=== PATIENT | male | born 1965 | race African-American/Black ===

== ENCOUNTER 2019-05-14 22:00 | Inpatient (IN) ==
--- NOTE | 2019-05-14 22:26 | EKG Report ---
Test Performed on : 05/14/2019 10:19:57 PM Test Reason : sob Blood Pressure : / mmHG Vent. Rate : 081 BPM Atrial Rate : 081 BPM P-R Int : 168 ms QRS Dur : 086 ms QT Int : 424 ms P-R-T Axes : 070 006 080 degrees QTc Int : 492 ms Normal sinus rhythm. Septal infarct , age undetermined Inferior injury pattern ACUTE [place] / STEMI Abnormal ECG No previous ECGs available Unconfirmed Result
--- NOTE | 2019-05-14 22:26 | EKG Report ---
Test Performed on : 05/14/2019 10:21:14 PM Test Reason : sob Blood Pressure : / mmHG Vent. Rate : 083 BPM Atrial Rate : 086 BPM P-R Int : 000 ms QRS Dur : 092 ms QT Int : 368 ms P-R-T Axes : 000 -09 060 degrees QTc Int : 432 ms Accelerated Junctional rhythm. Possible Inferior infarct , age undetermined Abnormal ECG When compared with ECG of 14-MAY-2019 22:19, (Unconfirmed) Junctional rhythm. has replaced Sinus rhythm. QT has shortened Unconfirmed Result
[2019-05-14 22:42] LABS: ALLEN TEST YES; BE -8.6 mmoll (-3.0-3.0); BLOOD TYPE ARTERIAL; HCO3-(ACT) 18.1 mmoll (20.0-26.0); O2(CT) 12.1 mL/dL (15.0-23.0); O2HB 90.3 % (95.0-99.0); PCO2(98.6) 30 mmHg (35-45); PO2(98.6) 61 mmHg (60-100); SAMPLE BLOOD; SAO2 93.5 % (95.0-100.0); THB 9.5 g/dL (11.5-17.4); pH(98.6) 7.34 (7.35-7.45)
[2019-05-14 22:43] LABS: MODALITY NRB
[2019-05-14 22:56] LABS: BASO# 0.01 X1000 (0.0-0.2); BASO% 0.1 % (0.0-0.8); EOS# 0.01 X1000 (0.0-0.7); EOS% 0.1 % (0.0-10.0); HEMATOCRIT 28.1 % (42.0-52.0); HEMOGLOBIN 8.8 g/dL (14.0-18.0); IMM GRAN# 0.03 X1000 (0.0-0.04); IMM GRAN% 0.4 % (0.0-0.5); LYMPH# 0.62 X1000 (1.2-3.4); LYMPH% 7.9 % (20.5-51.1); MCH 26.7 PG (27-31); MCHC 31.3 g/dL (33-37); MCV 85.2 FL (81-99); MONO# 0.28 X1000 (0.11-0.59); MONO% 3.6 % (1.7-9.3); MPV 11.1 FL (7.4-10.4); NEUT# 6.88 X1000 (1.4-6.5); NEUT% 87.9 % (42.2-75.2); PLT 307 X1000 (130-400); RDW 15.6 % (11.5-14.5); WBC 7.83 X1000 (4.8-10.8)
[2019-05-14 23:02] LABS: INR 1.31; PROTIME 16.5 Seconds (11.0-16.0)
[2019-05-14 23:04] LABS: PTT 57.1 Seconds (22.3-41.8)
[2019-05-14 23:48] LABS: ESTIMATED GFR 14
[2019-05-14 23:53] LABS: AGAP 14; ALB/GLOB RATIO 0.4; ALBUMIN 1.6 g/dL (3.5-5.0); ALKALINE PHOSPHATASE 229 U/L (32-122); BUN 51 mg/dL (8-22); CALCIUM 8.3 mg/dL (8.8-10.2); CHLORIDE 110 mmol/L (98-107); COSMO 290; CREATININE 5.2 mg/dL (0.7-1.2); GLUCOSE 116 mg/dL (70-104); GOT 13 U/L (10-34); GPT < 5 U/L (10-44); POTASSIUM 4.5 mmol/L (3.5-5.1); SODIUM 138 mmol/L (136-145); TCO2 14 mmol/L (25-35); TOTAL BILIRUBIN 0.17 mg/dL (0.20-1.00); TOTAL PROTEIN 5.5 g/dL (6.3-8.3)
[2019-05-15] MEDS ORDERED: LEVOPHED 8 MG in D5 1/2 NS 250 ML IV SCH (01:30)
--- NOTE | 2019-05-15 01:41 | PROVIDER DOCUMENTATION ---
This chart was entered by Nanci Mason Scribe, acting as scribe for Joni Brower MD. HPI-General Adult - General Stated Complaint: sob Time Seen by Provider: 05/14/19 22:11 Source: patient Unable to obtain history due to:: altered Allergies/Adverse Reactions: Patient Allergies Allergy/AdvReac Type Severity Reaction Status Date / Time No Known Allergies Allergy Verified 05/15/19 01:30 - History of Present Illness -Gen Adult Nature of Presenting Problems: pt is a 53 yr old male presenting via EMS from [facility], pt o2 sats in the 60's upon EMS arrival, EMS noted pt was wearing nasal canula but it was not hooked up to oxygen. pt hx of back cancer with mets, pt is responsive to painful stimuli at baseline, family reports he is acting no different than normal. pt recent hx of pneumonia Review of Systems - Adult - REVIEW OF SYSTEMS - ADULT ROS:: unobtainable per condition Constitutional: reports: no symptoms reported Eyes: reports: no symptoms reported Ears, Nose, Mouth & Throat: reports: no symptoms reported Cardiovascular: reports: no symptoms reported Respiratory: reports: other (low oxygen levels) Gastrointestinal: reports: no symptoms reported Genitourinary: reports: no symptoms reported Musculoskeletal: reports: no symptoms reported Integumentary: reports: no symptoms reported Neurological: reports: no symptoms reported Psychiatric: reports: no symptoms reported Endocrine: reports: no symptoms reported Hematologic/Lymphatic: reports: no symptoms reported Allergic/Immunologic: reports: no symptoms reported All Other Systems: Reviewed and Negative Past History - Adult - PAST MEDICAL HISTORY-ADULT Review of Records: reports: Nursing Assessment Review, Medications Reviewed, Social history reviewed & non-contributory. Major Childhood Illnesses: reports: denies history Cardiovascular: reports: denies history Respiratory: reports: denies history Gastrointestinal: reports: denies history Obstetrical/Gynecological: reports: denies history Genitourinary: reports: denies history Musculoskeletal: reports: denies history Neurological: reports: denies history Endocrine/Immune: reports: denies history Other Conditions: reports: denies history - IMMUNIZATION STATUS Childhood Immunizations: See Nurse Assessment Flu Vaccine: See Nurse Assessment - FAMILY HISTORY Family History: reviewed, not pertinent - SOCIAL HISTORY Living Situation: care facility Physical Exam-General - PHYSICAL EXAM-ADULT Initial Vital Signs Reviewed: Yes - CONSTITUTIONAL General Appearance: mild distress, obtunded (responsive to painful stimuli only) - EYES Eyes: PERRL/EOMI - HEAD, EARS, NOSE, MOUTH & THROAT HENMT: normocephalic/atraumatic, moist mucous membranes, normal ENT inspection - NECK Neck: supple - RESPIRATORY Respiratory: respiratory distress, rhonchi (coarse rhonchi left lung) - CARDIOVASCULAR Cardiovascular: normal peripheral pulses, regular rate, rhythm - GASTROINTESTINAL (ABDOMEN) Abdominal Exam: normal bowel sounds, soft - LYMPHATIC Lymphatic: no adenopathy - SKIN Integumentary: normal color, normal turgor, warm/dry Progress - PLAN OF CARE/RESULTS Progress/Plan/Lab Results: Laboratory Results - last 24 hr 05/14/19 22:11 Specimen Type ARTERIAL Sample Site R RADIAL pH 7.34 L pCO2 30 L pO2 61 HCO3 18.1 L Base Excess -8.6 L Oxyhemoglobin 90.3 L ABG O2 Sat (Calculated) 12.1 L ABG O2 Saturation 93.5 L ABG Carboxyhemoglobin 2.40 ABG Methemoglobin 1.0 Dale Test YES A-a O2 Difference 615.0 Total Hemoglobin 9.5 L Lactate 1.60 Liter Flow 15.0 Blood Gas Modality NRB FiO2 % 100.0 Orders Category Date Time Status CHEST-1 VIEW [RAD] Stat Exams 05/14/19 22:11 Taken ABG [RESP] Routine Lab 05/14/19 22:11 Completed BLOOD CULTURE [BLDCUL] Stat Lab 05/14/19 22:34 Ordered CBC WITH ELECTRONIC DIFF [HEME] Stat Lab 05/14/19 22:34 Ordered COMPREHENSIVE METABOLIC PANEL [CHEM] Stat Lab 05/14/19 22:34 Ordered LACTATE, PLASMA [CHEM] Stat Lab 05/14/19 22:34 Ordered PRO B-NATRIURETIC PEPTIDE Stat Lab 05/14/19 22:34 Ordered PROTIME WITH INR [COAG] Stat Lab 05/14/19 22:34 Ordered PTT [COAG] Stat Lab 05/14/19 22:34 Ordered TROPONIN T HIGH SENSITIVITY Stat Lab 05/14/19 22:34 Ordered EKG [EKG] Stat Ther 05/14/19 22:22 Draft EKG [EKG] Stat Ther 05/14/19 22:24 Draft Result Diagrams: 05/14/19 22:40 05/14/19 22:40 - CONSULTS/PCP/HOSPITALIST Notification #1 *Consult/PCP/Hospitalist*: Dr Pittman Time Discussed: 01:30 Consult Disposition: Will see in ED, Admit Departure - Departure Date of Disposition Decision: 05/15/19 Time of Disposition Decision: 01:33 DIAGNOSIS: Acute renal failure (ARF), Pneumonia, Hypotension, Elevated troponin, CHF (congestive heart failure), Anemia Disposition: ADMITTED INPATIENT 09 Certified Medical Emergency: Emergent Condition: Serious - Critical Care Note This patient required my direct & personal management of CC.: No Attestation - Physician/ ELOY Attestation Patient care was provided by Advanced Practice Provider:: No The physician spent face to face time with patient:: Yes Advanced Practice Provider documentation review:: Supervising physician onsite and consulted in the evaluation and care of this patient. The physician did have a face to face encounter with the patient. This chart was documented by the indicated scribe, (Nanci Mason, Giovanni) and accurately reflects the services I performed and decisions made by me, Joni Brower MD, as attested by the provider's signature.
[2019-05-15] MEDS ORDERED: DUONEB (A & A) INH PRN (01:42)
[2019-05-15] MEDS ORDERED: NS 1,000 ML IV SCH (01:45)
[2019-05-15] MEDS: NS 1,000 ML IV SCH ×2 (01:48→02:00)
[2019-05-15] MEDS ORDERED: LEVAQUIN 250 MG/D5W 250 MG/50 ML IVPB IV SCH (02:00)
[2019-05-15] MEDS: DUONEB (A & A) INH SCH ×6 (03:12→22:20)
--- NOTE | 2019-05-15 06:25 | Diag Imaging Result Doc PS360 ---
CHEST-1 VIEW - 05/14/2019 INDICATION: sob, hypoxia COMPARISON: None FINDINGS: There is a right PICC line in good position with the catheter tip at the lower SVC. There are heterogeneous bilateral alveolar infiltrates. These are worst in the left upper lobe. There are trace bilateral pleural effusions. Heart size is normal. IMPRESSION: Extensive bilateral infiltrates consistent with pneumonia and/or pulmonary edema. Trace pleural effusions. Electronically signed by Benny Hutchinson 05/15/2019 6:23 AM
[2019-05-15] MEDS: ZOSYN 2.25 GM in NS 50 ML IV SCH ×2 (06:56→18:50)
--- NOTE | 2019-05-15 07:00 | EKG Report ---
Test Performed on : 05/15/2019 01:46:59 AM Test Reason : PNA Blood Pressure : / mmHG Vent. Rate : 082 BPM Atrial Rate : 082 BPM P-R Int : 120 ms QRS Dur : 084 ms QT Int : 412 ms P-R-T Axes : 029 000 066 degrees QTc Int : 481 ms Normal sinus rhythm. Low voltage QRS Prolonged QT Abnormal ECG When compared with ECG of 14-MAY-2019 22:21, (Unconfirmed) Sinus rhythm. has replaced Junctional rhythm. QT has lengthened Unconfirmed Result
--- NOTE | 2019-05-15 07:39 | HISTORY AND PHYSICAL ---
HISTORY OF PRESENT ILLNESS: Mr. Jesus Denton is a 53-year-old male who is from a nursing facility. The patient is nonverbal, and no history could be obtained from the patient. No family present at the bedside. The patient was noted to be hypoxic at the time of presentation to the emergency department. X-ray of the chest done at the time of presentation showed evidence of extensive bilateral infiltrates, consistent with pneumonia and/or pulmonary edema, with evidence of trace pleural effusion. The patient does have a history of metastatic disease, of which the details are not exactly known at this time. PAST MEDICAL HISTORY: The patient has: 1. Metastatic disease. 2. History of cerebrovascular accident with right hemiparesis/plegia. FAMILY HISTORY: No information available. SOCIAL HISTORY: The patient resides in a nursing facility. ALLERGIES: No known drug allergies. PAST SURGICAL HISTORY: No information available. REVIEW OF SYSTEMS: Could not be obtained from the patient. PHYSICAL EXAMINATION: VITAL SIGNS: Temperature 99.1 degrees, pulse 92, respiratory rate 26, blood pressure is 90/61, oxygen saturation is 94%. HEENT: Atraumatic, normocephalic. He is anicteric. Has poor oral hygiene. NECK: No lymphadenopathy or thyromegaly. CARDIOVASCULAR: S1, S2. RESPIRATORY: Has occasional rhonchi noted. ABDOMEN: Soft, nontender. No masses felt. EXTREMITIES: Has edema in both lower extremities, worse on the right than on the left. CENTRAL NERVOUS SYSTEM: The patient is nonverbal, and does have right hemiplegia. LABORATORY DATA: WBC 7.83, hematocrit is 28.1, with a platelet count of 307,000. INR is 1.31. ABG 7.34/30/51/93.5%. Sodium is 138, potassium 4.5, chloride is 110, bicarb is 14, BUN is 51, creatinine is 5.2. Troponin is 128. ASSESSMENT AND PLAN: 1. Acute respiratory failure. Primary lung condition being pneumonia/pulmonary edema. Treat primary lung conditions. Maintain the patient on supplemental oxygen. The patient is a DO NOT RESUSCITATE. 2. Probable healthcare-associated pneumonia. Obtain sputum and blood cultures. Maintain the patient on empiric antibiotics. 3. Probable pulmonary edema. Maintain the patient on diuretics. Monitor intake and output, as well as daily weights. Obtain 2-dimensional echocardiogram of the heart. 4. Elevated troponin level. Place the patient on telemetry. Obtain some more serial cardiac enzymes. Consult with Cardiology. 5. Renal failure, acute versus chronic. Avoid nephrotoxic agent. Consult with Nephrology. 6. Anemia. Check iron studies, B12 and folate level, stool for occult blood. 7. History of cerebrovascular accident. Maintain the patient on aspirin and statin. Recommend physical therapy. 8. Deep vein thrombosis prophylaxis. Heparin. 9. Gastrointestinal prophylaxis. Proton pump inhibitor. cc: Rip Winkler MD
--- NOTE | 2019-05-15 07:39 | Diag Imaging Result Doc PS360 ---
EXAM: CT HEAD W/O CONTRAST INDICATION: ams TECHNIQUE: This exam was performed using automated exposure control, adjustment of mA or kV according to patient size, and/or use of iterative reconstruction technique. COMPARISON: None. FINDINGS: There is extensive patchy low attenuation in the periventricular and subcortical white matter suggesting advanced microangiopathy. There is a chronic appearing lacunar infarct at the inferior aspect of the right basal ganglion. There is no definite acute infarct given the limited sensitivity of CT versus MRI. There is no discrete intracranial mass, mass effect, or intracranial hemorrhage. There are postsurgical changes associated with the right globe and there is mild ethmoid sinus mucosal disease. Surrounding soft tissues and bony structures are essentially unremarkable, otherwise. IMPRESSION: Chronic appearing changes as described. No definite acute intracranial pathology by CT. Electronically signed by Cachorro Solo 05/15/2019 7:37 AM
[2019-05-15] MEDS ORDERED: LASIX IV SCH (08:00)
[2019-05-15] MEDS: ASPIRIN PO SCH (09:00)
[2019-05-15] MEDS ORDERED: ZYVOX PO SCH (09:00)
[2019-05-15] MEDS ORDERED: NS 500 ML IV ONE (10:37)
[2019-05-15] MEDS: HEPARIN SUBQ SCH (12:05)
--- NOTE | 2019-05-15 12:07 | CONSULTATION ---
DATE OF CONSULTATION: 05/15/2019 IMPRESSION: 1. Hypoxemic respiratory failure, probably due to aspiration. 2. Altered mental status with the patient obtunded. 3. Metastatic adenocarcinoma of unknown primary, reported in the patient's records. 4. Acute renal failure. I suspect intravascular volume depletion very likely. BNP elevated probably related to acute renal failure. The patient appears dry clinically. 5. 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 History of aspiration pneumonitis in the past. 7. Previous cardiac evaluation last year with echocardiography indicated normal left ventricular ejection fraction and moderate concentric left hypertrophy. Pharmacologic myocardial perfusion study negative for evidence of inducible myocardial ischemia. RECOMMENDATIONS: 1. Intravenous fluid administration to help with blood pressure and acute renal failure. 2. Nothing by mouth. 3. Treat for aspiration pneumonitis. 4. Conservative cardiovascular management overall. 5. Consider palliative care consult. HISTORY: This 53-year-old -[place] male with metastatic adenocarcinoma of unknown primary, paraplegia related to thoracic spinal abscess, aspiration pneumonia, and hypertensive cardiovascular disease was transferred from group home with respiratory failure. Patient is nonverbal and is obtunded. Chest x-ray abnormal showing bilateral infiltrates, and lab demonstrates acute renal failure. Troponin mildly elevated in nonspecific range. PAST MEDICAL HISTORY: 1. Metastatic adenocarcinoma of unknown primary. 2. 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 3. Hypertensive cardiovascular disease with left hypertrophy. 4. Aspiration pneumonia in the past with history of dysphagia. 5. Previous noninvasive cardiac workup with echocardiography and pharmacologic myocardial perfusion study demonstrating above results and noteworthy for left ventricular hypertrophy. Normal left ventricular ejection fraction and no indication of inducible myocardial ischemia. 6. History of urinary retention. 7. Chronic obstructive pulmonary disease. 8. 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 ALLERGIES: He has no known drug allergies. MEDICATIONS PRIOR TO ADMISSION: As listed. SOCIAL HISTORY: Patient currently residing in group home given extensive physical debility. FAMILY HISTORY: Not available from patient. REVIEW OF SYSTEMS: Not obtainable given patient's altered mental status. PHYSICAL EXAMINATION: General: Reveals a thin middle-aged -[place] male who is obtunded and nonverbal. Vital Signs: Blood pressure 134/87, heart rate 95, oxygen saturation 96% on Venturi mask. HEENT: Mucous membranes are dry. Neck: Supple. Neck veins are flat. There are no carotid bruits. Chest: Auscultation of the chest reveals bilateral rhonchi. Cardiac: Reveals a regular rate and rhythm without appreciable murmur or gallop. Abdomen: Soft, bowel sounds audible. Extremities: Demonstrate mild diffuse edema in all extremities. Neurologic: Reveals him to be obtunded and nonverbal. LABORATORY DATA: Includes a white blood cell count 7.83, hematocrit 28.1, hemoglobin 8.8, platelet count 307,000. Prothrombin time 16.5, INR 1.37, PTT 57.1. A pH of 7.34, pCO2 of 30, PO2 of 61. Sodium 138, potassium 4.5, chloride 110, carbon dioxide 14, BUN 51, creatinine 5.2. Initial troponin high sensitivity 128 with a followup troponin high sensitivity 129. Albumin 1.6. EKG reviewed and demonstrates normal sinus rhythm. Baseline artifact cannot rule out septal infarct of undetermined age. Chest x-ray was reviewed and demonstrated bilateral pulmonary infiltrates, left greater than right, suspicious for aspiration. cc: Vaughn Pritchett MD [facility]
[2019-05-15] MEDS: ALBUMIN 25% IV SCH (12:08)
[2019-05-15] MEDS: ZYVOX 600 MG/D5W 600 MG/300 ML IVPB IV SCH (12:50)
--- NOTE | 2019-05-15 20:02 | NEPHROLOGY CONSULTATION ---
DATE: 05/15/2019 REASON FOR CONSULTATION: Acute kidney injury. HISTORY OF PRESENT ILLNESS: Mr. Denton is a 53-year-old man with metastatic cancer. He had a recent I and D of a spinal abscess that apparently resulted in paraplegia. He is currently residing in a [facility] having recently received treatment with IV antibiotics. He had labs collected serially over the last 3 weeks. Creatinine was 1.6 on April 27 and has risen progressively to 5.21 on today. He was obtunded and therefore was referred to the emergency room. Apparently his mental status was significantly better within the last 24 hours. At the time of our exam, he is not able to offer any history at all. PAST MEDICAL HISTORY: As above. HOME MEDICATIONS: Include carvedilol, cefepime, furosemide, hydralazine, linezolid, methocarbamol, potassium, pantoprazole. ALLERGIES: None. SOCIAL: Again, resides in [facility]. FAMILY HISTORY: Not obtainable otherwise. REVIEW OF SYSTEMS: Not obtainable otherwise. PHYSICAL EXAMINATION: Vital Signs: Blood pressure at the time of my exam at 0700 blood pressure 114/60, heart rate 90, respirations 24, temperature 99.1 degrees. General: Obtunded. No acute distress. Skin is warm and dry. Pupils are equal. Gaze is not fixed on me. Oropharynx is dry. Neck: Neck veins are not distended. Trachea is midline. Heart: Regular. No gallops. Lungs: Equal, shallow. No crackles audible anteriorly. Abdomen: Soft, nontender. No palpable masses or organomegaly. Extremities: Have edema 2+ bilaterally right greater than left. Neuro: Nonverbal. Hemiplegia. IMPRESSION: Acute kidney injury. Presumably, acute tubular necrosis from nephrotoxic acute tubular necrosis. Metabolic acidosis is secondary to his renal failure. Mixed anion gap and non- gap components. We will check stander urine studies. Nguyen catheter. Renal ultrasound. He is really not a candidate for dialysis therapy. cc: Trevin Mary MD
[2019-05-15] MEDS ORDERED: LIPITOR PO SCH (21:00)
[2019-05-15 21:23] LABS: URINE SOURCE CATH
[2019-05-15 21:25] LABS: BILIRUBIN URINE NEGATIVE (NEGATIVE); BLOOD URINE SMALL (NEGATIVE); COLOR YELLOW; GLUCOSE URINE TRACE mg/dL (NEGATIVE); KETONE URINE NEGATIVE (NEGATIVE); LEUKOCYTES URINE MODERATE (NEGATIVE); NITRITE URINE NEGATIVE (NEGATIVE); PH URINE 6.5; PROTEIN URINE 200 mg/dL (NEGATIVE); SP GRAVITY URINE 1.016; TURBIDITY URINE CLEAR (CLEAR); UROBILINOGEN URINE NORMAL (NORMAL)
[2019-05-15 21:28] LABS: UR EPITHELIAL CELLS <10 /HPF (<10); URINE BACTERIA NEGATIVE /HPF; URINE RBC 20-40 /HPF (<10); URINE WBC TNTC /HPF (<10)
[2019-05-15 21:46] LABS: URINE CASTS NONE SEEN; URINE CRYSTALS NONE SEEN; URINE YEAST PRESENT
[2019-05-15 21:59] LABS: UR CREAT RANDOM 55.3 mg/dL (14-26); UR PROT RANDOM 206.9 mg/dL
[2019-05-16] MEDS ORDERED: ASPIRIN PR ONE (00:57)
[2019-05-16] MEDS: ZYVOX 600 MG/D5W 600 MG/300 ML IVPB IV SCH ×2 (01:45→11:26)
[2019-05-16] MEDS: HEPARIN SUBQ SCH ×2 (01:53→08:58)
[2019-05-16] MEDS: NS 1,000 ML IV SCH (02:00)
[2019-05-16] MEDS: DUONEB (A & A) INH SCH ×4 (03:50→15:05)
[2019-05-16] MEDS: ZOSYN 2.25 GM in NS 50 ML IV SCH (05:57)
[2019-05-16] MEDS ORDERED: PRILOSEC PO SCH (07:00)
[2019-05-16 07:45] LABS: ALBUMIN 2.1 g/dL (3.5-5.0); CALCIUM 7.9 mg/dL (8.8-10.2); CREATININE 5.7 mg/dL (0.7-1.2); PHOSPHORUS 4.3 mg/dL (2.7-4.5)
[2019-05-16 07:53] LABS: BASO# 0.01 X1000 (0.0-0.2); BASO% 0.1 % (0.0-0.8); EOS# 0.06 X1000 (0.0-0.7); EOS% 0.7 % (0.0-10.0); HEMATOCRIT 25.9 % (42.0-52.0); HEMOGLOBIN 8.2 g/dL (14.0-18.0); IMM GRAN# 0.03 X1000 (0.0-0.04); IMM GRAN% 0.3 % (0.0-0.5); LYMPH# 0.48 X1000 (1.2-3.4); LYMPH% 5.5 % (20.5-51.1); MCH 26.9 PG (27-31); MCHC 31.7 g/dL (33-37); MCV 84.9 FL (81-99); MONO# 0.35 X1000 (0.11-0.59); MPV 11.2 FL (7.4-10.4); NEUT# 7.73 X1000 (1.4-6.5); NEUT% 89.4 % (42.2-75.2); PLT 295 X1000 (130-400); RBC 3.05 XMIL (4.7-6.1); RDW 15.9 % (11.5-14.5); WBC 8.66 X1000 (4.8-10.8)
[2019-05-16 07:58] LABS: CHOLESTEROL 100 mg/dL (0-200); HDL 19 mg/dL (35-55); LDL 55 mg/dL; TRIGLYCERIDES 132 mg/dL (39-160); VLDL 26 mg/dL
[2019-05-16 08:04] LABS: FERRITIN 1605 ng/mL (30-400)
[2019-05-16 08:45] LABS: BANDS 18 % (0-1); HYPOCHROM 1+; LYMPHS 6 % (21-51); MONO 8 % (1-9); POIKILOCYTOSIS 1+; SEGS 68 % (42-75)
[2019-05-16] MEDS: ALBUMIN 25% IV SCH (08:58)
[2019-05-16] MEDS ORDERED: CLINIMIX E 4.25%-5% SOLUTION 1,000 ML IV SCH (09:00)
[2019-05-16] MEDS ORDERED: LIPOSYN 20% 250 ML IV SCH (09:00)
[2019-05-16] MEDS: ASPIRIN PO SCH (09:09)
--- NOTE | 2019-05-16 09:33 | PROGRESS NOTE ---
DATE: 05/16/2019 SUBJECTIVE: The patient is nonverbal. He lives in a [facility]. Sometimes, he mumbles some unintelligible words. OBJECTIVE: Vital Signs: Temperature 97.5 degrees, heart rate 80, respiratory rate 21, blood pressure 121/72, O2 saturation 100% on Venturi mask 15%. General Examination; This is a chronically ill-appearing and malnourished, 53-year-old, -[place] male, lying in bed, in no acute distress. Cardiovascular Examination: S1 and S2 heard. No murmurs, gallops, or rubs. Regular rate and rhythm. Respiratory Examination: Rhonchi noted in both pulmonary canales, mostly noted in both bases. The patient is not using any accessory muscles or having work of breathing. Abdomen: Soft. A little bit distended but nontender to palpation. Bowel sounds present. No organomegaly. Extremities: Both lower extremities 4+ up to almost both knees, worse on the right than on the left. Peripheral pulses present but very faint. Neurological Examination: The patient is nonverbal. Seems to have a right hemiplegia. Laboratory Data: White cell count 8.66, hemoglobin 8.2, hematocrit 25.9, platelets 295,000. BMP that reveals creatinine 5.7 and glucose 75. ASSESSMENT AND PLAN: 1. Acute hypoxemic respiratory failure, definitely related to pneumonia and pulmonary edema. The patient has been started on Zyvox and renally-dosed Levaquin. We will continue to monitor this patient closely. 2. Healthcare-associated pneumonia. We will continue with current antibiotics mentioned above. White cell count, unfortunately, continues to get worse, although not spiking fever. We will continue to monitor. 3. Elevated troponins, most likely related to mismatch supply-demand. Cardiology recommends just conservative management. 4. Acute kidney injury. Creatinine continues to get worse. Nephrology is following this patient. He is not a candidate for dialysis. We will follow recommendations from them. Continued metabolic acidosis secondary to that condition. 5. Anemia of chronic disease, definitely related to iron deficiency and also renal disease as well. We will continue to monitor CBC. 6. History of cerebrovascular accident. Aware. We will continue on aspirin and statin. 7. Malnutrition. We will continue with Clinimix. There is an order for a swallow test considering his current situation, I do not think he is going to be able to pass it. 8. Disposition. We will continue to monitor this patient closely in the intensive care unit. The patient's prognosis is very poor. We will consult palliative care. cc: Oneil Dominguez MD [facility]
[2019-05-16] MEDS ORDERED: D50W SYRINGE IV ONE (11:04)
[2019-05-16] MEDS ORDERED: D50W SYRINGE ONE (11:11)
[2019-05-16] MEDS ORDERED: MORPHINE IV PRN (12:04)
[2019-05-16] MEDS ORDERED: MYCAMINE 100 MG in NS 100 ML IV SCH (12:15)
--- NOTE | 2019-05-16 13:02 | Diag Imaging Result Doc PS360 ---
US RENAL 2 (RETROPER) COMPLETE - 05/16/2019 INDICATION: decreased renal function TECHNIQUE: COMPARISON: None FINDINGS: The kidneys are normal in echotexture. There is no hydronephrosis, mass, or cyst. The urinary bladder is collapsed by a Nguyen catheter. The right kidney measures 10.8 x 4 x 6.2 cm. The left kidney measures 10.2 x 6.2 x 4.5 cm. IMPRESSION: Negative exam. Electronically signed by Benny Hutchinson 05/16/2019 1:00 PM
[2019-05-16] MEDS ORDERED: NS 500 ML IV ONE ×2 (14:33→15:01)
[2019-05-16] MEDS ORDERED: THIAMINE 100 MG in NS 50 ML IV SCH (14:45)
--- NOTE | 2019-05-16 14:58 | PROGRESS NOTE ---
DATE: 05/16/2019 SUBJECTIVE: Patient more awake today and seems to respond to questions appropriately. He denies chest pain or shortness of breath. Nevertheless, respiratory rate seems to be elevated. OBJECTIVE: Blood pressure 93/54, heart rate 82, oxygen saturation 100% on supplemental oxygen per venturi mask. Jugular distention not evident. Auscultation chest reveals diffuse rhonchi.Cardiac: Reveals a regular rate and rhythm without appreciable murmur or gallop. Extremities: Demonstrate mild to moderate pedal edema. LABORATORY DATA: Includes a white blood cell count 8.66, hematocrit 25.9, platelet count 295,000. Sodium 138, potassium 5.0, chloride 108, carbon dioxide 15, BUN 58, creatinine 5.7, albumin 2.1. IMPRESSION: 1. Acute hypoxemic respiratory failure. I suspect aspiration very likely as he has history of this in the past and chest x-ray is highly suggestive. 2. Acute renal failure. Urine output has been very low. Suspect acute tubular necrosis and likely severe intravascular volume depletion. 3. Metastatic adenocarcinoma of unknown primary. 4. Paraplegia. 5. Very slight nonspecific elevation in troponins probably related to renal failure. Serial CPKs normal. Previous cardiac evaluation last year with echocardiography indicated normal left ventricular ejection fraction and moderate concentric left hypertrophy. Pharmacologic myocardial perfusion study was negative for evidence of inducible myocardial ischemia. RECOMMENDATIONS: 1. Administer additional IV fluids. 2. Keep NPO and manage for aspiration pneumonitis and probable pneumonia. 3. Conservative cardiovascular management overall in light of patient's severe debility. Consider palliative care consult. cc: Vaughn Pritchett MD
[2019-05-16] MEDS ORDERED: ATIVAN IV PRN (15:48)
[2019-05-16] MEDS ORDERED: TYLENOL PR PRN (15:49)
[2019-05-16] MEDS ORDERED: ZOFRAN IV PRN (15:50)
[2019-05-16 16:15] VITALS: BP 58/39
[2019-05-16] MEDS ORDERED: ZOSYN 2.25 GM in NS 50 ML IV SCH (18:00)
--- NOTE | 2019-05-16 19:02 | PROVIDER PROGRESS NOTE ---
Progress Note Subjective: unable to communicate Objective: 97.5, pulse 88, respirations 21, blood pressure 121/72, 02 sat 100% on 50% Venturi mask General: chronically ill, -[place] male lying in bed in no acute distress. HEENT: normocephalic, atraumatic, pupils equal and reactive. Arcus senilis. Conjunctiva pale. Mucous membranes dry. Skin: warm and dry Neck: supple, No JVD noted Cardiovascular: S1, S2, regular rate and rhythm. No gallops or murmur. Respiratory: Diminished anteriorly. Abdomen: soft, nontender, nondistended. Bowel sounds present. : non-inspected, Nguyen in place. Extremities: right hemiplegia, pitting edema to bilateral feet with right greater than left. Neurological: non verbal. Unable to follow commands. Impression: Acute kidney injury. Presumed acute tubular necrosis. Fractional excretion of sodium 3.2%. Creatinine up to 5.7. Adequate urine noted with lasix and albumin. He is not a good candidate for renal replacement therapy due to several comorbidities and cancer with metastasis. I discussed with with Hailey Fernando. She states the family has opted for conservative care only. As such, we will sign off. [email or web address]
--- NOTE | 2019-05-18 14:00 | DISCHARGE SUMMARY ---
ADMISSION DATE: 05/15/2019 DISCHARGE DATE: 05/16/2019 DISCHARGE DIAGNOSES: The patient, unfortunately, from the following diagnoses: 1. Acute respiratory failure. 2. Healthcare-associated pneumonia. 3. Pulmonary edema. 4. Elevated troponins. 5. Acute kidney injury. 6. Anemia of chronic disease. 7. History of cerebrovascular accident. HOSPITAL COURSE: This is a 53-year-old, -[place] male who was brought from a nursing facility. The patient is nonverbal. He was sent because of shortness of breath. He was hypoxic at that facility so here in the emergency department, he was found out to be in acute respiratory failure with extensive bilateral infiltrates that were considered healthcare-associated pneumonia. He was sent to the intensive care unit, placed on broad-spectrum antibiotics and breathing treatments. Patient, unfortunately, did not improve. Mom presented to the hospital, brought documentation that he is Do Not Resuscitate. Palliative care talked with mom and then decided to do comfort care measures only. The patient unfortunately at 1635 of 05/16/2019. cc: Oneil Dominguez MD
== END 2019-05-16 16:35 | disposition expired | DRG 189 ==
LOC: ED 22:00 → EDIPHOLD 05-15 02:19 → SUATTDRO 05-15 02:19 → ICU 05-16 00:55 → EDIPHOLD 05-16 02:34 → ICU 05-16 06:59
PROVIDERS: ATTEND Internal Medicine